=== PATIENT | female | born 1950 | race Two or more races ===

== ENCOUNTER 2018-01-18 21:44 | Emergency (ER) | payer OTHER ==
[~2018-01-18] VITALS: Ht 154.9 cm; Wt 81.6 kg
[~2018-01-18 21:44] MED LIST: CEPH750C6 OR; INDO25CA14 PO
[2018-01-18 22:48] LABS: Basophils # (auto) 0 uL; Basophils % (auto) 0.3 % (0.0-2.0); Eosinophils # (auto) 0 uL; Eosinophils % (auto) 0.3 % (0.0-7.0); Hematocrit 43.6 % (36.0-46.0); Hemoglobin 14.3 g/dL (12.2-16.2); Lymphocytes # (auto) 1.2 uL; Lymphocytes % (auto) 10.7 % (10.0-50.0); Mean Corpuscular Hemoglobin 27.7 pg (28.0-32.0); Mean Corpuscular Hgb Conc. 32.7 g/dL (32.0-36.0); Mean Corpuscular Volume 84.8 fL (80.0-100.0); Monocytes # (auto) 0.3 uL; Monocytes % (auto) 2.3 % (0.0-12.0); Neutrophils # (auto) 9.4 uL; Neutrophils % (auto) 86.4 % (37.0-80.0); Platelet Count (auto) 307 10^3/uL (140-450); Red Blood Cells 5.15 10^6/uL (4.0-5.20); Red Cell Distribution Width 14.7 % (11.8-14.3); White Blood Cell 10.9 10^3/uL (4.4-10.8)
[2018-01-18 23:00] LABS: Albumin 3.2 g/dL (3.4-5.0); BUN/Creatinine Ratio 19.6; Calcium 8.2 mg/dL (8.5-10.1); Potassium 3.7 mmol/L (3.5-5.1)
[2018-01-18 23:02] LABS: Bilirubin, Total 0.5 mg/dL (0.2-1.0); Total Protein 7.5 g/dL (6.4-8.2)
[2018-01-19] MEDS ORDERED: SODIUM CHLORIDE 0.9% 1,000 ML IV ONE (08:42)
[2018-01-19 09:21] LABS: Urine Bacteria FEW /hpf (None Seen); Urine Blood Negative /uL (Negative); Urine Specific Gravity 1.005 (1.001-1.035); Urine WBC 37 /hpf (0 - 5)
[2018-01-19 10:08] VITALS: BP 94/53
[2018-01-19] MEDS ORDERED: cefTRIAXone 1GM/10ml IVPUSH 10 ML IV ONE (11:00)
== END 2018-01-19 12:09 | disposition home or self-care (01) ==
LOC: ER 21:44
DX: N39.0 Urinary tract infection, site not specified (principal); R42 Dizziness and giddiness; M19.90 Unspecified osteoarthritis, unspecified site; Z90.49 Acquired absence of other specified parts of digestive tract
CPT/HCPCS: 36415; 80053; 81001; 85025; 96361; 96374; 99284; J7030

== ENCOUNTER 2024-10-29 00:35 | Emergency (ER) | payer OTHER ==
[~2024-10-29] VITALS: Ht 152.4 cm; Wt 80.0 kg
[~2024-10-29 00:35] MED LIST changes: +INDO-35 PO; -INDO25CA14 PO
--- NOTE | 2024-10-29 01:30 | ED.PDOC ---
Psychiatric HPI Comments 74-year-old female brought in by son. The patient states she has been having auditory hallucinations hearing a male and female voices. States she has been feeling very anxious over the last week. Says over the last seven days she was slipped very little. Patient states she has been having mild anxiety has been getting worse over the last months after new people have moved in on the lot that she stays. Son states that she does stay alone. When he went to go pick her up her house was in the clearly manner. She was still been taking care of herself but she was not left her home in two months. Patient denies any suicidal and homicidal ideations. Patient states that she has had similar episode but it was over 10 years ago. She denied getting help because she would not want her children get it taken away. Chief Complaint: Anxiety Time Seen by MD: 01:09 Primary Care Provider: FILI Reviewed Notes: Nurses Notes Information Source: Patient Past Medical History PAST MEDICAL HISTORY: Arthritis Surgical History: Appendectomy, Cholecystectomy, , Hernia Repair RECEIVABLE EXECUTIVE History: No Pertinent RECEIVABLE EXECUTIVE History Family History Family History: Unknown Social History Smoker: Non-Smoker Alcohol: Denies ETOH Use Drugs: Denies Drug Use Lives In: Home Constitutional: denies: chills, diaphoresis, fatigue, fever, malaise, sweats, weakness, others EENTM: denies: blurred vision, double vision, ear bleeding, ear discharge, ear drainage, ear pain, ear ringing, eye pain, eye redness, hearing loss, mouth pain, mouth swelling, nasal discharge, nose bleeding, nose congestion, nose pain, photophobia, tearing, throat pain, throat swelling, voice changes, others Respiratory: denies: cough, hemoptysis, orthopnea, SOB at rest, shortness of breath, SOB with excertion, stridor, wheezing, others Cardiovascular: denies: chest pain, dizzy spells, diaphoresis, Dyspnea on exertion, edema, irregular heart beat, left arm pain, lightheadedness, palpitations, PND, syncope, others Gastrointestinal: denies: abdomen distended, abdominal pain, blood streaked bowels, constipated, diarrhea, dysphagia, difficulty swallowing, hematemesis, melena, nausea, poor appetite, poor fluid intake, rectal bleeding, rectal pain, vomiting, others Genitourinary: denies: abnormal vagina bleeding, burning, dyspareunia, dysuria, flank pain, frequency, hematuria, incontinence, pain, , vagina discharge, urgency, others Neurological: denies: dizziness, fainting, headache, left sided numbness, left sided weakness, numbness, paresthesia, pre-existing deficit, right sided numbness, right sided weakness, seizure, speech problems, tingling, tremors, weakness, others Musculoskeletal: denies: back pain, gout, joint pain, joint swelling, muscle pain, muscle stiffness, neck pain, others Integumetry: denies: bruises, change in color, change in hair/nails, dryness, laceration, lesions, lumps, rash, wounds, others Psychiatric: reports: anxiety, panic disorder, sleepless Physical Exam General Appearance: No Apparent Distress, Normal HEENT: Normal ENT Inspection, Pharynx Normal, TMs Normal Neck: Full Range of Motion, Non-Tender, Normal, Normal Inspection Respiratory: Chest Non-Tender, Lungs Clear, No Accessory Muscle Use, No Respiratory Distress, Normal Breath Sounds Cardiovascular: No Edema, No JVD, No Murmur, No Gallop, Normal Peripheral Pulses, Regular Rate/Rhythm Breast Exam: Deferred Gastrointestinal: No Organomegaly, Non Tender, No Pulsatile Mass, Normal Bowel Sounds, Soft Genitalia: Deferred Pelvic: Deferred Rectal: Deferred Extremities: No calf tenderness, Normal capillary refill, Normal inspection, Normal range of motion, Non-tender, No pedal edema Musculoskeletal : Apperance: Normal 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 Was a procedure done?: No Psych Differential Dx Psych. Differential Dx: Anxiety OD Differential Dx: Delirium Intoxication Differential Dx: Schizophrenia X-Ray, Labs, Meds, VS Vital Signs Date Time Temp Pulse Resp B/P (MAP) Pulse Ox O2 Delivery O2 Flow Rate FiO2 10/29/24 07:40 84 18 107/52 (70) 96 10/29/24 03:52 98 Room Air* 0 10/29/24 03:37 97.5 90 16 114/62 (79) 96 97.5 10/29/24 01:16 18 95 Room Air* 0 10/29/24 01:16 98.1 113 18 143/73 (96) 95 Lab Test 10/29/24 03:30 10/29/24 03:00 Range/Units Urine Color Colorless Yellow Urine Clarity Clear Clear Urine pH 5.5 5.0-9.0 Urine Specific [place] 1.005 1.001-1.035 Urine Protein Negative Negative Urine Ketones Negative Negative Urine Blood Negative Negative /uL Urine Nitrite Negative Negative Urine Bilirubin Negative Negative Urine Urobilinogen Normal Negative mg/dL Urine Leukocyte Esterase Negative Negative /uL Urine RBC None seen 0 - 4 /hpf Urine WBC 2 0 - 5 /hpf Urine Squamous Epithelial Cells Few <5 /hpf Urine Bacteria Few H None Seen /hpf Urine Glucose Normal Normal mg/dL Urine Opiates Screen Neg NEGATIVE Urine Fentanyl Screen Neg NEGATIVE Urine Barbiturates Screen Neg NEGATIVE Urine Phencyclidine Screen Neg NEGATIVE Urine Amphetamines Screen Neg NEGATIVE Urine Benzodiazepines Screen Neg NEGATIVE Urine Cocaine Screen Neg NEGATIVE Urine Cannabinoids Screen Neg NEGATIVE White Blood Count 10.4 4.4-10.8 10^3/uL Red Blood Count 4.95 4.0-5.20 10^6/uL Hemoglobin 13.9 12.2-16.2 g/dL Hematocrit 41.9 36.0-46.0 % Mean Corpuscular Volume 84.5 80.0-100.0 fL Mean Corpuscular Hemoglobin 28.1 28.0-32.0 pg Mean Corpuscular Hemoglobin Concent 33.3 32.0-36.0 g/dL Red Cell Distribution Width 15.0 H 11.8-14.3 % Platelet Count 432 140-450 10^3/uL Mean Platelet Volume 7.5 6.9-10.8 fL Neutrophils (%) (Auto) 70.3 37.0-80.0 % Lymphocytes (%) (Auto) 22.8 10.0-50.0 % Monocytes (%) (Auto) 5.4 0.0-12.0 % Eosinophils (%) (Auto) 1.2 0.0-7.0 % Basophils (%) (Auto) 0.3 0.0-2.0 % Neutrophils # (Auto) 7.3 1.6-8.6 10 ^3/uL Lymphocytes # (Auto) 2.4 0.4-5.4 10 ^3/uL Monocytes # (Auto) 0.6 0-1.3 10 ^3/uL Eosinophils # (Auto) 0.1 0-0.8 10 ^3/uL Basophils # (Auto) 0 0-0.2 10 ^3/uL Nucleated Red Blood Cells 0.1 % Sodium Level 140 136-145 mmol/L Potassium Level 3.9 3.5-5.1 mmol/L Chloride Level 105 98-107 mmol/L Carbon Dioxide Level 30 20-31 mmol/L Anion Gap 5 5-15 Blood Urea Nitrogen 8 L 9-23 mg/dL Creatinine 0.68 0.550-1.02 mg/dL Glomerular Filtration Rate Calc 91 >90 mL/min BUN/Creatinine Ratio 11.8 10.0-20.0 Serum Glucose 109 H 74-106 mg/dL Calcium Level 9.9 8.7-10.4 mg/dL Total Bilirubin 0.3 0.2-1.0 mg/dL Aspartate Amino Transferase (AST) 16 13-40 U/L Alanine Aminotransferase (ALT) < 9 7-40 U/L Alkaline Phosphatase 103 46-116 U/L Total Protein 6.9 5.7-8.2 g/dL Albumin 3.9 3.2-4.8 g/dL Salicylates Level < 3.0 -30 mg/dL Acetaminophen Level < 2.0 L 10.0-20.0 UG/ML Plasma/Serum Blood Alcohol < 3.0 <10 mg/dL Current Medications Medications (Trade) Dose Ordered Sig/Jamar Route Start Time Stop Time Status Last Admin Lorazepam (Ativan Tablet) 0.5 mg ONCE ONCE PO 10/29/24 01:15 10/29/24 01:16 DC 10/29/24 01:34 X-Ray, Labs, Meds, VS Comment Patient is seen by psychiatrist Does not meet criteria for a 51/50 and will be discharged home to follow up with the psychiatrist as outpatient Time of 1ST Reevaluation: 01:29 Reevaluation 1ST: Unchanged Time of 2ND Reevaluation: 08:39 Reevaluation 2ND: Improved Consultation: PCP, Psychiatry Patient Education/Counseling: Diagnosis, Treatment, Prognosis, Need For Follow Up Family Education/Counseling: Diagnosis, Treatment, Prognosis, Need For Follow Up, No Family Present Assigned to Dr. Guadalupe Change of Shift?: Yes Departure 1 Departure Time of Disposition: 08:45 Impression: Primary Impression: Anxiety disorder Qualified Codes: F41.1 - Generalized anxiety disorder Additional Impression: Auditory hallucinations Disposition: HOME / SELF CARE / HOMELESS Condition: Fair e-Prescriptions Olanzapine (OLANZAPINE) 5 Mg Tab 1 TAB PO QPM for 10 Days, #10 TAB 2 Refills Prov: GIA MUÑOZ MD 10/29/24 Discharged With: Self, Relative (Sibling) Critical Care Note Critical Care Time?: No Stability Stability form required: No Heart Score Heart Score: Heart Score Response (Comments) Value History N/A 0 EKG N/A 0 Age >65 2 Risk Factors No known risk factors 0 Troponin N/A 0 Total 2 PEDRO WILDER Oct 29, 2024 01:30 GIA MUÑOZ MD Oct 29, 2024 08:40
[2024-10-29] MEDS: LORazepam 0.5 MG TAB PO ONE (01:34)
[2024-10-29 03:22] LABS: Basophils # (auto) 0 10 ^3/uL (0-0.2); Basophils % (auto) 0.3 % (0.0-2.0); Eosinophils # (auto) 0.1 10 ^3/uL (0-0.8); Eosinophils % (auto) 1.2 % (0.0-7.0); Hematocrit 41.9 % (36.0-46.0); Hemoglobin 13.9 g/dL (12.2-16.2); Lymphocytes # (auto) 2.4 10 ^3/uL (0.4-5.4); Lymphocytes % (auto) 22.8 % (10.0-50.0); Mean Corpuscular Hemoglobin 28.1 pg (28.0-32.0); Mean Corpuscular Hgb Conc. 33.3 g/dL (32.0-36.0); Mean Corpuscular Volume 84.5 fL (80.0-100.0); Monocytes # (auto) 0.6 10 ^3/uL (0-1.3); Monocytes % (auto) 5.4 % (0.0-12.0); Neutrophils # (auto) 7.3 10 ^3/uL (1.6-8.6); Neutrophils % (auto) 70.3 % (37.0-80.0); Nucleated Red Blood Cells % 0.1 %; Platelet Count (auto) 432 10^3/uL (140-450); Red Blood Cells 4.95 10^6/uL (4.0-5.20); White Blood Cell 10.4 10^3/uL (4.4-10.8)
[2024-10-29 03:41] LABS: Albumin 3.9 g/dL (3.2-4.8); Alkaline Phosphatase 103 U/L (46-116); Anion Gap 5 (5-15); Aspartate Aminotransferase 16 U/L (13-40); BUN/Creatinine Ratio 11.8 (10.0-20.0); Calcium 9.9 mg/dL (8.7-10.4); Carbon Dioxide 30 mmol/L (20-31); Chloride 105 mmol/L (98-107); Potassium 3.9 mmol/L (3.5-5.1); Sodium 140 mmol/L (136-145)
[2024-10-29 03:42] LABS: Bilirubin, Total 0.3 mg/dL (0.2-1.0); Total Protein 6.9 g/dL (5.7-8.2)
[2024-10-29 03:45] LABS: Alanine Aminotransferase < 9 U/L (7-40); Blood Alcohol < 3.0 mg/dL (<10); Blood Urea Nitrogen 8 mg/dL (9-23); Glucose 109 mg/dL (74-106)
[2024-10-29 03:46] LABS: Acetaminophen < 2.0 UG/ML (10.0-20.0); Salicylate < 3.0 mg/dL (-30)
[2024-10-29 03:52] VITALS: O2SAT 98
[2024-10-29 04:28] LABS: Amphetamine Screen, Urine Neg (NEGATIVE); Barbiturate Scree,Urine Neg (NEGATIVE); Benzodiazephine Screen, Urine Neg (NEGATIVE); Cannabinoid Screen, Urine Neg (NEGATIVE); Cocaine Screen, Urine Neg (NEGATIVE); Opiate Scree,Urine Neg (NEGATIVE); Phencyclidine Screen, Urine Neg (NEGATIVE)
[2024-10-29 04:58] LABS: Urine Bacteria FEW /hpf (None Seen); Urine Blood Negative /uL (Negative); Urine Clarity Clear (Clear); Urine Color Colorless (Yellow); Urine Protein, UAD Negative (Negative); Urine Specific Gravity 1.005 (1.001-1.035); Urine Urobilinogen Normal (Negative); Urine WBC 2 /hpf (0 - 5); Urine pH 5.5 (5.0-9.0)
--- NOTE | 2024-10-29 06:18 | DVHINCON2 ---
Date of Service if different f: Oct 29, 2024 Time of Service: 05:29 Consult Consult Note PSYCHIATRY ED NEW CONSULT HPI: 74 yo F pt with no PPH presents to ED BIB son for safety, psychiatric stabilization and possible med initiation in setting of anxiety and psychosis. Psychiatry consulted for safety evaluation and recommendations in context of current presentation. Of note, pt citizen of [place] speaking only hence adoption counselor (son) utilized throughout interview Per pt, reports about a week ago sudden onset of AH of male/female voices that are threatening to hurt/abduct her resulting in increased anxiety, some depressed mood, poor sleep, paranoia, symptoms primarily worse at night. Pt also reports being spied by her neighbor and they are trying to evict her because of her ethnicity. Denies TI/TW/TB. Per son, pt had a similar episode several decades ago but never sought any help due to fear of losing her young children. Denies any ADL/IADL impairments. Denies any forgetfulness or memory concerns. Denies hopelessness, helplessness, negative thoughts, loss of interest, or anhedonia. Appetite/energy/conc relatively WNL. Adamantly denies SI/HI. No overt manic, psychotic, major depressive, cognitive, dissociative phenomena, or somatic symptoms noted. Appears somewhat future oriented/goal directed. Pt currently does not have psychiatrist/therapist out in community. Currently not on any psychotropic agents. No prior psych med trials. Denies ETOH, THC or IDU with 4 children, lives by self in single family home, some support system noted (immediate family). Unknown trauma hx. Unknown FH. No acute medical issues, hx of seizures/TBI, or recent head injuries, NKDA. Pt medically cleared in ED Does not have hx of suicide attempts, SIB/PSG, or prior psych hospitalizations/5150. Denies history of violence, unprovoked aggression, or assaultive behaviors. Denies recent hx of impulsivity, attention seeking behaviors, anger outbursts, emotional dysregulation, mood reactivity or engaging in risky behaviors. Does not have access to firearms. Currently denies SI/HI. Identifies self/family as PPF. No safety concerns noted during encounter. MSE: General Appearance/Behavior: Alert and awake; appears stated age, well developed, fair grooming and hygiene; calm and cooperative, fair eye contact, no PMA/PMR Speech: coherent, rrr Thought Process: linear, logical, appears goal-directed Thought Content: Abnormal Thoughts and Perceptions: None Homicidality / Violent Thoughts: None Suicidality: adamantly denies SI Hallucinations: (+) AH Delusions: + paranoia Obsessions /compulsions : None Judgment and Insight: fair judgment with fair insight Mood & Affect: "anxious" with mood-congruent, worried Orientation: oriented to person, place, time Attention/Concentration: appears intact Memory: grossly intact Language: no unusual or inappropriate language Assessment: 74 yo F pt with no PPH presents to ED BIB son for safety, psychiatric stabilization and possible med initiation in setting of anxiety and psychosis. Psychiatry consulted for safety evaluation and recommendations in context of cur rent presentation. Of note, pt citizen of [place] speaking only hence adoption counselor (son) utilized throughout interview Currently denies SI/HI but continues to endorse threatening AH, anxiety, poor sleep, and paranoia. Unclear etiology of symptoms - pt medically cleared in ED and has no prior psych history. No cognitive symptoms noted. Suspect isolated brief psychotic episode - pt is elderly and lives alone with very minimal social activation. NO ADL/IADL impairment nopted Presently, pt does not show any signs of immediate danger to self or others that would warrant a higher level of care. Thus, pt does not meet criteria for 5150 or involuntary inpatient psych admission as is not DTS, DTO or GD. No acute safety concerns noted. Acute suicide risk appears nonexistent to relatively low Meantime, do feel that patient would benefit from a brief trial of antipsychotic to address AH and anxiety symptoms that have been exacerbated prior to this admission. Primary Diagnosis: Psychotic disorder unspecified Plan: Does not warrant involuntary inpatient psychiatric hospitalization or 5150 hold at this time No acute safety concerns Pt can be safely discharged back to current residence with rx for Olanzapine 5 mg po qhs x 7 days with 1 R Risks/benefits/alternative treatments discussed, informed consent provided by pt Supportive tx provided, discussed safety plan with pt Instructed pt to call [phone] or return to ED if psychotic symptoms worsen or new onset SI/HI upon discharge low threshold for inpt psych admission if pt returns with similar CC/presentation Family (son at bedside) agrees to watch patient over next couple days, safeguard primary residence, ensure med compliance, and to arrange any appropriate f/u appointments Pt verbalized understanding and is receptive to above tx plan This case was discussed with ED nurse/provider and all parties in agreement with above tx plan Clayton Rod MD Plan discussed with: Patient, Dilshad CLAYTON ROD MD Oct 29, 2024 06:18
[2024-10-29] MEDS ORDERED: OLAN1TAB7 PO (08:38)
[2024-10-29 08:51] VITALS: BP 132/84; PULSE 69; RESP 16; TEMP 98.2; O2SAT 98
== END 2024-10-29 08:52 | disposition home or self-care (01) ==
LOC: ER 00:35
DX: F41.1 Generalized anxiety disorder (principal); F32.A Depression, unspecified; F22 Delusional disorders; M19.90 Unspecified osteoarthritis, unspecified site; Z90.49 Acquired absence of other specified parts of digestive tract; Z98.890 Other specified postprocedural states
CPT/HCPCS: 36415; 80053; 80307; 80320; 80329; 81001; 85025

== ENCOUNTER 2025-08-20 19:12 | Inpatient (IN) | payer OTHER ==
[~2025-08-20] VITALS: Ht 152.4 cm; Wt 72.0 kg
[~2025-08-20 19:12] MED LIST changes: +OLAN1TAB7 PO
--- NOTE | 2025-08-20 19:33 | ECG ---
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
--- NOTE | 2025-08-20 19:46 | ED.PDOC ---
SOB-HPI HPI Comments HPI: 75 year old female came to ER due to shortness of breath. Patient has been complaining of shortness of breath and mid back pains for the past 3 weeks. Denies any recent trauma. Motrin taken for the pain offers no relief. Initial Vitals BP: 133/65 HR:102 RR:18 O2:94% Temp: Past Medical History: Arthritis, Osteoporosis Past Surgical History: CS, appendectomy, cholecystectomy, hernia repair Social History: Denies ETOH, smoking, and drug use. BAHENA: SHORTNESS OF BREATH HPI: Poor Historian. REVIEW OF SYSTEMS: CONSTITUTIONAL: Denies acute: fever, diaphoresis, chills, generalized weakness. HEAD: Denies acute: headache, photophobia Eyes: Denies acute: Double vision, vision loss, eye pain, eye discharge. EARS: Denies acute: tinnitus, hearing loss, ear discharge, ear pain, THROAT: Denies acute: sore throat, swelling, difficulty swallowing , pain with swallowing, change in voice. NECK: Denies acute: neck pain, neck swelling, stiff neck. HEART: Denies acute : chest pain, palpitations, LUNGS: Denies acute: , wheezing, cough, hemoptysis ABDOMEN: Denies acute: abdominal pain, Nausea, Vomiting, diarrhea, melena , hematemesis, hematochezia SKIN: Denies acute: rash, redness, lesions, itchiness. EXTREMITIES: Denies acute: calf pain, numbness, tingling, weakness, denies pain in extremity. Neuro: Denies acute: focal neurological deficit, motor or sensory focal neurological deficit, tremors, seizure like activity, confusion, dizziness, change in mental status, loss of bowel or bladder function, cauda equina like symptoms. : Denies acute: dysuria, hematuria, flank pain, increase in urinary frequency. PSYCH: Denies acute: hallucination, suicidal ideation, homicidal ideation. FEMALE: Denies acute: abnormal vaginal bleeding, foul odor, unusual discharge. PHYSICAL EXAM: General: ----moderate----acute distress, awake and alert. Head: normocephalic, atraumatic. Neck: supple, trachea is midline, no swelling. Throat: Normal phonation. Eyes:, no erythema, no purulent discharge, no proptosis, no icterus. Heart: regular tachycardic,, no significant murmur appreciated. Lungs: no apparent respiratory distress, Able to speak in full sentences. No wheezing, no rhonchi, no crackles. No stridors Clear to auscultation bilaterally. Abdomen: non tender to palpation, non distended, soft, no guarding, no rebound, + bowel sounds. Obese Neuro: Awake, Alert, oriented to name, self, situation, follows commands GCS=15. Speech is normal. Skin: no petechia, no purpura, no cyanosis, non-pale, not jaundice. Lower extremities: --trace bilateral- Pitting edema no deformity, no focal swelling, no calf TTP. Makes eye contact. moves all four extremities. Face: no apparent facial droop. Palpation of the mid thoracic back bilaterally is tender to palpation however there is no erythema or lesions or swelling or deformity Ambulating in the ED with a walker. ED COURSE: DISCLAIMER: This medical document was created using an electronic medical record system with voice recognition software and computerized dictation system. Although this document has been carefully reviewed, there might still be some phonetic and typographical errors. Occasional wrong-word or "sound-alike" substitutions may have occurred due to the inherent limitations of voice recognition software. These areas are purely typographical due to imperfections of the software programs and do not reflect any compromise in the patient's medical care. Please read the chart carefully and recognize, using context, where these substitutions have occurred. Chief Complaint: Shortness of Breath Time Seen by MD: 19:44 Primary Care Provider: FILI Reviewed notes: Nurses Notes, Allergies Information Source: Patient Mode of Arrival: Ambulatory Past Medical History PAST MEDICAL HISTORY: Arthritis Surgical History: Appendectomy, Cholecystectomy, , Hernia Repair RESEARCH CLERK History: No Pertinent RESEARCH CLERK History Family History Family History: Reviewed,noncontributory to illness Social History Smoker: Non-Smoker Alcohol: Denies ETOH Use Drugs: Denies Drug Use Lives In: Home EKG EKG : Pulse Rate (adult): 105 Cardiac Rhythm: ST Was a procedure done? Was a procedure done?: No Differential Dx Differential Diagnosis: Bronchitis, Respiratory Distress, URI, Other (DDx include ACS, unstable angina, anxiety, PE, pneumothroax, neoplasm, cardiac ischemia, COPD, asthma, CHF, pleural effusion, tobacco abuse, pneumonia, hypoxia, hypercapnia, anemia., infection/sepsis., pulmonary edema. Asthma, Cardiac tamponade, infection.) X-Ray, Labs, Meds, VS Vital Signs Date Time Temp Pulse Resp B/P (MAP) Pulse Ox O2 Delivery O2 Flow Rate FiO2 08/20/25 21:31 98.1 101 18 125/68 (87) 93 98.1 08/20/25 20:15 125/68 08/20/25 19:46 105 08/20/25 19:31 105 08/20/25 19:16 97.4 102 18 133/65 94 97.4 Lab Test 08/20/25 20:43 08/20/25 19:37 Range/Units Phosphorus Level 3.4 2.4-5.1 mg/dL Magnesium Level 2.0 1.6-2.6 mg/dL Troponin I High Sensitivity < 3 L < 3 L </=34 ng/L Triglycerides Level 100 < 150 mg/dL Cholesterol Level 139 < 200 mg/dL LDL Cholesterol 75 < 100 mg/dL HDL Cholesterol 56 40-59 mg/dL Vitamin B12 Level Pending White Blood Count 11.0 H 4.4-10.8 10^3/uL Red Blood Count 5.19 4.0-5.20 10^6/uL Hemoglobin 14.3 12.2-16.2 g/dL Hematocrit 43.4 36.0-46.0 % Mean Corpuscular Volume 83.6 80.0-100.0 fL Mean Corpuscular Hemoglobin 27.5 L 28.0-32.0 pg Mean Corpuscular Hemoglobin Concent 32.8 32.0-36.0 g/dL Red Cell Distribution Width 14.8 H 11.8-14.3 % Platelet Count 461 H 140-450 10^3/uL Mean Platelet Volume 7.0 6.9-10.8 fL Neutrophils (%) (Auto) 71.2 37.0-80.0 % Lymphocytes (%) (Auto) 20.8 10.0-50.0 % Monocytes (%) (Auto) 6.3 0.0-12.0 % Eosinophils (%) (Auto) 1.5 0.0-7.0 % Basophils (%) (Auto) 0.2 0.0-2.0 % Neutrophils # (Auto) 7.8 1.6-8.6 10 ^3/uL Lymphocytes # (Auto) 2.3 0.4-5.4 10 ^3/uL Monocytes # (Auto) 0.7 0-1.3 10 ^3/uL Eosinophils # (Auto) 0.2 0-0.8 10 ^3/uL Basophils # (Auto) 0 0-0.2 10 ^3/uL Nucleated Red Blood Cells 0.1 % Prothrombin Time 9.8 9.3-11.8 sec Prothrombin Time INR 0.92 0.9-1.15 Activated Partial Thromboplast Time 28.4 24.5-34.5 SEC D-Dimer, Quantitative 0.92 H 0.0-0.49 mg/L FEU Sodium Level 141 136-145 mmol/L Potassium Level 3.6 3.5-5.1 mmol/L Chloride Level 102 98-107 mmol/L Carbon Dioxide Level 28 20-31 mmol/L Anion Gap 11 5-15 Blood Urea Nitrogen 9 9-23 mg/dL Creatinine 0.61 0.550-1.02 mg/dL Glomerular Filtration Rate Calc 93 >90 mL/min BUN/Creatinine Ratio 14.8 10.0-20.0 Serum Glucose 107 H 74-106 mg/dL Hemoglobin A1c 5.3 <5.7 % A1C Calcium Level 9.5 8.7-10.4 mg/dL Total Bilirubin 0.4 0.2-1.0 mg/dL Aspartate Amino Transferase (AST) 15 13-40 U/L Alanine Aminotransferase (ALT) 10 7-40 U/L Alkaline Phosphatase 94 46-116 U/L B-Type Natriuretic Peptide 17.93 0-100 pg/mL Total Protein 7.6 5.7-8.2 g/dL Albumin 4.2 3.2-4.8 g/dL Vitamin D 25-Hydroxy 24.1 L 30.0-100 ng/mL Thyroid Stimulating Hormone (TSH) 1.75 0.55-4.78 uIU/mL Current Medications Medications (Trade) Dose Ordered Sig/Jamar Route Start Time Stop Time Status Last Admin Furosemide (Lasix Injection) 20 mg ONCE ONCE IV 08/20/25 20:15 08/20/25 20:16 DC 08/20/25 20:15 [facility] [id number] [facility] [id number] Ph: [phone] DIAGNOSTIC IMAGING Diagnostic Imaging Report : [id number] Signed PATIENT: ALISHA BAHENA ACCT: [id number] UNIT: [id number] : 1950 LOC: ER ROOM / BED: / AGE / SEX: 75 / F ADM STATUS: REG ER SERVICE 45 ORDERING PHYSICIAN: ADRIEN PATTERSON DO PROCEDURE(s): CTACH - CT ANGIO CHEST CONTRAST REASON: sob, mid thoracic back pain ORDER NUMBER(s): [id number], ACCESSION NUMBER(s): [id number] CTA Chest with intravenous contrast INDICATION: sob, mid thoracic back pain COMPARISON: Same day chest radiograph TECHNIQUE: Multidetector spiral CTA of the chest was performed of the chest with intravenous contrast. PULMONARY ANGIOGRAPHY PROTOCOL was utilized using a bolus-tracking technique centered on the main pulmonary artery. Axial, coronal and sagittal multiplanar and MIP reformats were performed. Radiation Dose : 1. Chest: CTDI volume is 21.96 mGy. Dose-length product is 1265.7 mGy*cm The dose indicators for CT are the volume Computed Tomography (CT) Dose Index (CTDIvol) and the Dose Length Product (DLP), and are measured in units of mGy a nd mGy-cm, respectively. These indicators are not patient dose, but values generated from the CT scanner acquisition factors. The report includes radiation exposure data for exposures received during this examination. Findings: Pulmonary arteries: Technical factors adequate for assessment to the level of the proximal subsegmental arteries. No evidence of filling defect. Central arteries are normal in caliber. Lower neck: Multinodular thyroid, largest at the isthmus measuring 1.6 cm. Lungs: No focal consolidation. Mild basilar scarring/atelectasis. Pleura: Normal. Heart/Vascular Structures: Normal heart size. No pericardial effusion. Mild coronary and aortic atherosclerosis. Lymph Nodes: No adenopathy Musculoskeletal: Multiple chronic appearing thoracic vertebral compression deformities including T4-T5 and T8-T9. Degenerative change and scoliotic curvature of the spine. Soft tissues: Unremarkable. Upper abdomen: Left adrenal 2 cm nodule with 52 Hounsfield unit attenuation. Partially imaged enlarged left renal collecting system appearing most consistent with renal sinus cysts. Cholecystectomy. IMPRESSION: 1. No pulmonary embolism to the level of the proximal subsegmental arteries. 2. No acute thoracic finding. 3. Indeterminate left adrenal 2 cm nodule, outpatient adrenal CT or MRI recommended. 4. Partially imaged enlarged left renal collecting system appears most co nsistent with renal sinus cysts, may be further assessed on the above recommended adrenal exam. ATED BY: MARKUS DAHL MD DICTATED DATE/TIME: 08/20/252146 SIGNED BY: MARKUS DAHL MD SIGNED DATE/TIME: 08/20/252146 CC: [place] [id number] Ph: [phone] DIAGNOSTIC IMAGING Diagnostic Imaging Report : [id number] Signed PATIENT: ALISHA BAHENA ACCT: [id number] UNIT: [id number] : 1950 LOC: ER ROOM / BED: / AGE / SEX: 75 / F ADM STATUS: REG ER SERVICE 23 ORDERING PHYSICIAN: ADRIEN PATTERSON DO PROCEDURE(s): CXRP - CHEST PORTABLE REASON: sob ORDER NUMBER(s): [id number], ACCESSION NUMBER(s): [id number] CLINICAL HISTORY: sob TECHNIQUE: Single view of the chest was obtained. COMPARISON: None FINDINGS: The heart size and pulmonary vasculature are normal. The lungs are clear. IMPRESSION: NO ACUTE CARDIOPULMONARY PROCESS. ATED BY: MIKAYLA LEONARD MD DICTATED DATE/TIME: 08/20/252009 SIGNED BY: MIKAYLA LEONARD MD SIGNED DATE/TIME: 08/20/252009 CC: Time of 1ST Reevaluation: 19:43 Reevaluation 1ST: Unchanged Patient Education/Counseling: Diagnosis, Treatment Family Education/Counseling: No Family Present Comments MDM: patient presented with the above HPI.-dyspnea----workup was initiated. patient was found with the above mentioned diagnosis. the following medications were ordered: please refer to order lists of meds and tests obtained by myself Dr. Patterson. Patient ED course and VS have been stabilized. Patient has been reassessed in the ED and remained in a stable condition. Pertinent incidental findings were discussed with the patient and/or family. Patient/family voices understanding and is agreeable with plan. Patient has been observed in the ED adequate length of time to insure improvement/stability. Escalation of care considered: Consideration of escalation to observation or admission Patient was ADMITTED to the medicine team for further evaluation and treatment of their presentation. All the reports of any imaging studies that were ordered by myself were reviewed by myself. SEPSIS Sepsis Screen Date sepsis recognized/suspect: Aug 20, 2025 Time Sepsis recognized/suspect: 1920 Recent Procedure: No On Antibiotic Therapy: No Respiratory Rate >20: No Heart Rate >90: No Temp<36 C (96.8 F) or >38.3 C: No SBP <90 or MAP <65 mmHG: No New Acute Mental Status Change: No Is the patient on CPAP, BIPAP,: No Physician Orders Quality Analyst/Technical Writer (08/20/25 ) Chest Portable (08/20/25 19:24) Ct Angio Chest Contrast (08/20/25 19:46) Vital Signs Date Time Temp Pulse Resp B/P (MAP) Pulse Ox O2 Delivery O2 Flow Rate FiO2 08/20/25 21:31 98.1 101 18 125/68 (87) 93 98.1 08/20/25 20:15 125/68 08/20/25 19:46 105 08/20/25 19:31 105 08/20/25 19:16 97.4 102 18 133/65 94 97.4 Laboratory Tests Test 08/20/25 19:37 White Blood Count 11.0 10^3/uL (4.4-10.8) H Medications Medications Dose Ordered Sig/Jamar Route Start Time Stop Time Status Last Admin Dose Admin Furosemide 20 mg ONCE ONCE IV 08/20/25 20:15 08/20/25 20:16 DC 08/20/25 20:15 Departure 1 Departure Time of Disposition: 21:47 Impression: Primary Impression: Dyspnea Additional Impressions: Back pain Multinodular thyroid Disposition: ADMITTED INPATIENT Admit to: Tele Condition: Guarded Discharged With: Self Critical Care Note Critical Care Time?: No Heart Score Heart Score: Heart Score Response (Comments) Value History N/A 0 EKG N/A 0 Age N/A 0 Risk Factors N/A 0 Troponin N/A 0 Total 0 I personally scribed for ADRIEN PATTERSON DO ([facility]) on 08/20/25 at 19:46. Electronically submitted by Josias Schwab ([facility]). I personally scribed for ADRIEN PATTERSON DO ([facility]) on 08/20/25 at 21:59. Electronically submitted by Josias Schwab ([facility]). I personally scribed for ADRIEN PATTERSON DO ([facility]) on 08/20/25 at 22:04. Electronically submitted by Josias Schwab ([facility]). I personally scribed for ADRIEN PATTERSON DO ([facility]) on 08/20/25 at 22:15. Electronically submitted by Josias Schwab ([facility]). ADRIEN PATTERSON DO Aug 20, 2025 19:46
[2025-08-20 19:56] LABS: Hematocrit 43.4 % (36.0-46.0); Hemoglobin 14.3 g/dL (12.2-16.2); Mean Corpuscular Hemoglobin 27.5 pg (28.0-32.0); Mean Corpuscular Volume 83.6 fL (80.0-100.0); Nucleated Red Blood Cells % 0.1 %
[2025-08-20 20:12] LABS: Alanine Aminotransferase 10 U/L (7-40); Albumin 4.2 g/dL (3.2-4.8); Alkaline Phosphatase 94 U/L (46-116); Anion Gap 11 (5-15); BUN/Creatinine Ratio 14.8 (10.0-20.0); Bilirubin, Total 0.4 mg/dL (0.2-1.0); Blood Urea Nitrogen 9 mg/dL (9-23); Calcium 9.5 mg/dL (8.7-10.4); Carbon Dioxide 28 mmol/L (20-31); Chloride 102 mmol/L (98-107); Potassium 3.6 mmol/L (3.5-5.1); Sodium 141 mmol/L (136-145); Total Protein 7.6 g/dL (5.7-8.2)
--- NOTE | 2025-08-20 20:13 | DVH ---
CLINICAL HISTORY: sob TECHNIQUE: Single view of the chest was obtained. COMPARISON: None FINDINGS: The heart size and pulmonary vasculature are normal. The lungs are clear. IMPRESSION: NO ACUTE CARDIOPULMONARY PROCESS.
[2025-08-20 20:14] LABS: Glucose 107 mg/dL (74-106)
[2025-08-20] MEDS: FUROSEMIDE 20 MG/2 ML VIAL IV ONE (20:15)
[2025-08-20] MEDS: IOHEXOL 350 MG/ML 100ML IJ ONE (21:00)
--- NOTE | 2025-08-20 21:49 | DVH ---
CTA Chest with intravenous contrast INDICATION: sob, mid thoracic back pain COMPARISON: Same day chest radiograph TECHNIQUE: Multidetector spiral CTA of the chest was performed of the chest with intravenous contrast . PULMONARY ANGIOGRAPHY PROTOCOL was utilized using a bolus-tracking technique centered on the main p ulmonary artery. Axial, coronal and sagittal multiplanar and MIP reformats were performed. Radiation Dose : 1. Chest: CTDI volume is 21.96 mGy. Dose-length product is 1265.7 mGy*cm The dose indicators for CT are the volume Computed Tomography (CT) Dose Index (CTDIvol) and the Dose Length Product (DLP), and are measured in units of mGy and mGy-cm, respectively. These indicators are not patient dose, but values generated from the CT scanner acquisition factors. The report includes radiation exposure data for exposures received during this examination. Findings: Pulmonary arteries: Technical factors adequate for assessment to the level of the proximal subsegment al arteries. No evidence of filling defect. Central arteries are normal in caliber. Lower neck: Multinodular thyroid, largest at the isthmus measuring 1.6 cm. Lungs: No focal consolidation. Mild basilar scarring/atelectasis. Pleura: Normal. Heart/Vascular Structures: Normal heart size. No pericardial effusion. Mild coronary and aortic ather osclerosis. Lymph Nodes: No adenopathy Musculoskeletal: Multiple chronic appearing thoracic vertebral compression deformities including T4-T 5 and T8-T9. Degenerative change and scoliotic curvature of the spine. Soft tissues: Unremarkable. Upper abdomen: Left adrenal 2 cm nodule with 52 Hounsfield unit attenuation. Partially imaged enlarge d left renal collecting system appearing most consistent with renal sinus cysts. Cholecystectomy. IMPRESSION: 1. No pulmonary embolism to the level of the proximal subsegmental arteries. 2. No acute thoracic finding. 3. Indeterminate left adrenal 2 cm nodule, outpatient adrenal CT or MRI recommended. 4. Partially imaged enlarged left renal collecting system appears most consistent with renal sinus cy sts, may be further assessed on the above recommended adrenal exam.
--- NOTE | 2025-08-20 22:36 | DVHHPRES ---
History of Present Illness Resident Creating Document: LUZ DAWSON RESIDENT History of Present Illness Loreto Glaser is a 75-year-old female patient who presents to ED with chief complaint of stabbing back pain, dyspnea and left sided chest pressure which last approximately 10 minutes, worsens with superficial palpation and when lying flat and improves when leaning forward, has been occurring for the past three weeks, associated with dry cough, sweats, chills, swelling of bilateral limbs, and headaches. Denies any other associated symptoms Past medical history: Asthma, multiple UTIs (last one one year ago), bilateral cataracts (pending surgery) Surgical history: Cholecystectomy, appendectomy, umbilical hernia repair, C- section Family history: Mother has diabetes Social history: Lives in [place] alone (next of kin is daughter). Denies current tobacco, alcohol and other drug abuse Allergies: Denies Home medication: Motrin PRN Patient seen and examined at bedside. Currently has no new complaints. Patient admitted for further evaluation. Past Medical History Per HPI Past Surgical History Per HPI Family History Per HPI Past Social History Per HPI Review of Systems Review of Systems Per HPI Allergies: Coded Allergies: NO KNOWN ALLERGIES (Unverified , 01/03/13) Exam Vital Signs Vital Signs Date Time Temp Pulse Resp B/P (MAP) Pulse Ox O2 Delivery O2 Flow Rate FiO2 08/20/25 21:31 98.1 101 18 125/68 (87) 93 98.1 Exam Patient lying in bed, in no acute distress General: Lucid, afebrile, mucosae are moist Cardiovascular: Normal S1 and S2. No murmurs, gallops or rubs. Tenderness on palpation of left-sided chest Respiratory: Normal ventilation mechanics. Clear lung sounds on auscultation Abdomen: Soft, nontender, no organomegaly, normal bowel sounds : Bilateral positive costovertebral tenderness. MSK/skin: Mobilizes 4 limbs. Skin is dry and warm. Bilateral infrapatellar pitting edema, right greater than left. Neurological: Oriented in 3 spheres. No motor no sensitive deficits. Pupils are isocoric and reactive Labs/Xrays Labs Test 08/20/25 20:43 08/20/25 19:37 Range/Units Troponin I High Sensitivity < 3 L </=34 ng/L White Blood Count 11.0 H 4.4-10.8 10^3/uL Red Blood Count 5.19 4.0-5.20 10^6/uL Hemoglobin 14.3 12.2-16.2 g/dL Hematocrit 43.4 36.0-46.0 % Mean Corpuscular Volume 83.6 80.0-100.0 fL Mean Corpuscular Hemoglobin 27.5 L 28.0-32.0 pg Mean Corpuscular Hemoglobin Concent 32.8 32.0-36.0 g/dL Red Cell Distribution Width 14.8 H 11.8-14.3 % Platelet Count 461 H 140-450 10^3/uL Mean Platelet Volume 7.0 6.9-10.8 fL Neutrophils (%) (Auto) 71.2 37.0-80.0 % Lymphocytes (%) (Auto) 20.8 10.0-50.0 % Monocytes (%) (Auto) 6.3 0.0-12.0 % Eosinophils (%) (Auto) 1.5 0.0-7.0 % Basophils (%) (Auto) 0.2 0.0-2.0 % Neutrophils # (Auto) 7.8 1.6-8.6 10 ^3/uL Lymphocytes # (Auto) 2.3 0.4-5.4 10 ^3/uL Monocytes # (Auto) 0.7 0-1.3 10 ^3/uL Eosinophils # (Auto) 0.2 0-0.8 10 ^3/uL Basophils # (Auto) 0 0-0.2 10 ^3/uL Nucleated Red Blood Cells 0.1 % D-Dimer, Quantitative 0.92 H 0.0-0.49 mg/L FEU Sodium Level 141 136-145 mmol/L Potassium Level 3.6 3.5-5.1 mmol/L Chloride Level 102 98-107 mmol/L Carbon Dioxide Level 28 20-31 mmol/L Anion Gap 11 5-15 Blood Urea Nitrogen 9 9-23 mg/dL Creatinine 0.61 0.550-1.02 mg/dL Glomerular Filtration Rate Calc 93 >90 mL/min BUN/Creatinine Ratio 14.8 10.0-20.0 Serum Glucose 107 H 74-106 mg/dL Calcium Level 9.5 8.7-10.4 mg/dL Total Bilirubin 0.4 0.2-1.0 mg/dL Aspartate Amino Transferase (AST) 15 13-40 U/L Alanine Aminotransferase (ALT) 10 7-40 U/L Alkaline Phosphatase 94 46-116 U/L B-Type Natriuretic Peptide 17.93 0-100 pg/mL Total Protein 7.6 5.7-8.2 g/dL Albumin 4.2 3.2-4.8 g/dL SEPSIS Sepsis Screen Date sepsis recognized/suspect: Aug 20, 2025 Time Sepsis recognized/suspect: 1920 Recent Procedure: No On Antibiotic Therapy: No Respiratory Rate >20: No Heart Rate >90: No Temp<36 C (96.8 F) or >38.3 C: No SBP <90 or MAP <65 mmHG: No New Acute Mental Status Change: No Is the patient on CPAP, BIPAP,: No Physician Orders Child Welfare Director (08/20/25 ) Chest Portable (08/20/25 19:24) Ct Angio Chest Contrast (08/20/25 19:46) Vital Signs Date Time Temp Pulse Resp B/P (MAP) Pulse Ox O2 Delivery O2 Flow Rate FiO2 08/20/25 21:31 98.1 101 18 125/68 (87) 93 98.1 08/20/25 20:15 125/68 08/20/25 19:46 105 08/20/25 19:31 105 08/20/25 19:16 97.4 102 18 133/65 94 97.4 Laboratory Tests Test 08/20/25 19:37 White Blood Count 11.0 10^3/uL (4.4-10.8) H Medications Medications Dose Ordered Sig/Jamar Route Start Time Stop Time Status Last Admin Dose Admin Furosemide 20 mg ONCE ONCE IV 08/20/25 20:15 08/20/25 20:16 DC 08/20/25 20:15 20 MG Assessment/Plan Assessment/Plan Probable complicated UTI Renal sinus cyst Indeterminate left adrenal 2 cm nodule History of multiple UTIs Currently under empiric IV antibiotic (ceftriaxone) Ordered UA, pending Pancultures (blood, urine and sputum), pending Ordered kidney ultrasound Ordered aldosterone/renin, metanephrines and cortisol Ruled out pulmonary embolism Ruled out aortic dissection Ruled out acute coronary syndrome Noncardiac pain - probable costochondritis Ruled out DVT Completed Angio CT which ruled out pulmonary embolism and acute thoracic findings. Did report left adrenal 2 cm nodule and probable renal sinus cyst. Ordered bilateral lower limb ultrasound Troponin x2 negative, EKG with sinus tachycardia and no ST-elevation. Noncardiac pain (musculoskeletal) Asthma, no exacerbation Albuterol PRN Goals of care discussed with patient for over 18 minutes: Full code status Discussed plan with Dr. Mejia, patient and nurses: Patient admitted to [facility]. Patient probably has UTI, pending UA, patient did presents severe costovertebral angle tenderness, and does present abnormal renal sinus. Ordered kidney ultrasound and pancultures. Patient currently under empiric IV antibiotic. Plan discussed with: Patient, Other (Nurses and grandosn) Date of Service: Aug 20, 2025 Billing Provider: JACINDA MEJIA MD Common Visit Codes: 38213-[id number] INP/OBS CARE (HIGH) Secondary Visit Codes: 91001-[id number] CARE PLAN 30 MINUTES LUZ DAWSON RESIDENT Aug 20, 2025 22:36
[2025-08-20] MEDS ORDERED: MORPHINE SULFATE INJ 2 MG/ml SYRG IV PRN (22:45)
[2025-08-20] MEDS ORDERED: ONDANSETRON HCL 4 MG/2 ML VIAL IV PRN (22:45)
[2025-08-20 23:12] LABS: INR 0.92 (0.9-1.15); Partial Thromboplastin Time 28.4 SEC (24.5-34.5); Prothrombin Time 9.8 sec (9.3-11.8)
[2025-08-20 23:20] LABS: Triglycerides 100.0 mg/dL (< 150)
[2025-08-20 23:21] LABS: Magnesium 2.0 mg/dL (1.6-2.6)
[2025-08-20 23:22] LABS: Cholesterol 139.0 mg/dL (< 200); HDL Cholesterol 56.0 mg/dL (40-59)
[2025-08-21] VITALS (11 sets, daily range): BP systolic 112–143; BP diastolic 62–78; PULSE 80–100; RESP 16–24; TEMP 97.5–98; O2SAT 94–97
[2025-08-21 06:24] LABS: Hematocrit 41.0 % (36.0-46.0); Hemoglobin 13.7 g/dL (12.2-16.2); Mean Corpuscular Hemoglobin 27.9 pg (28.0-32.0); Mean Corpuscular Volume 83.4 fL (80.0-100.0); Nucleated Red Blood Cells % 0.0 %
[2025-08-21 06:47] LABS: Alanine Aminotransferase 10 U/L (7-40); Albumin 4.0 g/dL (3.2-4.8); Alkaline Phosphatase 92 U/L (46-116); Anion Gap 12 (5-15); BUN/Creatinine Ratio 16.4 (10.0-20.0); Blood Urea Nitrogen 9 mg/dL (9-23); Calcium 9.4 mg/dL (8.7-10.4); Carbon Dioxide 26 mmol/L (20-31); Chloride 103 mmol/L (98-107); Glucose 101 mg/dL (74-106); Potassium 3.6 mmol/L (3.5-5.1); Sodium 141 mmol/L (136-145); Total Protein 7.2 g/dL (5.7-8.2)
[2025-08-21 06:48] LABS: Bilirubin, Total 0.3 mg/dL (0.2-1.0)
[2025-08-21 09:09] LABS: Urine Protein, UAD TRACE (Negative)
[2025-08-21 09:49] LABS: Amphetamine Screen, Urine Neg (NEGATIVE); Barbiturate Scree,Urine Neg (NEGATIVE); Benzodiazephine Screen, Urine Neg (NEGATIVE); Cannabinoid Screen, Urine Neg (NEGATIVE); Cocaine Screen, Urine Neg (NEGATIVE); Opiate Scree,Urine Neg (NEGATIVE); Phencyclidine Screen, Urine Neg (NEGATIVE)
--- NOTE | 2025-08-21 10:07 | DVH ---
CLINICAL HISTORY: Renal sinus cyst TECHNIQUE: Complete ultrasound exam of the kidneys and bladder was performed. COMPARISON: None FINDINGS: Evaluation is limited due to suboptimal image quality due to patient condition. The right kidney has normal echogenicity and measures 9.3 cm. There is no focal parenchymal abnormali ty or evidence for stone. There is no hydronephrosis. The left kidney has normal echogenicity and measures 11.7 cm. There is no focal parenchymal abnormal ity or evidence for stone. There is mild pelvicaliectasis. The bladder is not well distended and therefore not well evaluated. IMPRESSION: Mild left renal pelvicaliectasis.
--- NOTE | 2025-08-21 10:28 | DVH ---
CLINICAL HISTORY: bilateral LL swelling TECHNIQUE: Color and duplex doppler imagine of the bilateral lower extremity veins was performed. Ves zandra compression and augmentation if possible was also performed. COMPARISON: None FINDINGS: Right Lower Extremity: Right common femoral vein: Normal compressibility and flow. Right superficial femoral vein: Normal compressibility and flow. Right popliteal vein: Normal compressibility and flow. Proximal calf veins demonstrate flow. Left Lower Extremity: Left common femoral vein: Normal compressibility and flow. Left superficial femoral vein: Normal compressibility and flow. Left popliteal vein: Normal compressibility and flow. Proximal calf veins demonstrate flow. There is a 6.9 cm left Ron's cyst. IMPRESSION: No sonographic evidence for DVT. 6.9 cm left Ron's cyst.
--- NOTE | 2025-08-21 10:32 | DVH ---
ULTRASOUND SOFT TISSUE HEAD AND NECK CLINICAL INDICATION: Thyroid nodule on CT TECHNIQUE: Multiple real time sonographic images of the thyroid were obtained. COMPARISON: Prior exam dated None FINDINGS: The right thyroid gland measures 3.3 x 2.1 x 1.7 cm. The left thyroid gland measures approximately 3.6 x 2.0 x 1 4 cm. The isthmus measures 1. cm. Thyroid gland is diffusely heterogeneous. Evaluation is limited as patient was uncooperative. Multip le cysts are visualized in the bilateral thyroid gland with the limitations of the exam. IMPRESSION: Thyroid gland is diffusely heterogeneous. Evaluation is limited as patient was uncooperative. Multip le cysts (TI-RADS 2) are visualized in the bilateral thyroid gland with the limitations of the exam. [employer] TI-RADS Categories and Recommendations (2017): TR1: 0 points, Benign, No FNA TR2: 2 points, Not suspicious, No FNA TR3: 3 points, Mildly suspicious, FNA if > or = 2.5 cm, Follow if > or = 1.5 cm TR4: 4-6 points, Moderately Suspicious, FNA if > or = 1.5 cm, Follow if > or = 1.0 cm TR5: 7+ points, Highly Suspicious, FNA if > or = 1.0 cm, Follow if > or = 0.5 cm Follow-up ultrasound guidelines: TR5: yearly for 5 years, if no growth or change in TI-RADS level TR4: at 1, 2, 3 and 5 years, if no growth or change in TI-RADS level TR3: at 1, 3 and 5 years, if no growth or change in TI-RADS level If increased but below threshold for FNA, repeat in one year. Source: ACR Thyroid Imaging, Reporting and Data System (TI-RADS): White Paper of the ACR TI-RADS Committee. Anibal et al., J Am Agnieszka Radiol 2017;14:587-595.
[2025-08-21] MEDS: ENOXAPARIN SOD 40 MG/0.4 ML SYRINGE SC SCH (11:37)
[2025-08-21] MEDS: ACETAMINOPHEN 325 MG TAB PO PRN (12:58)
--- NOTE | 2025-08-21 17:02 | DVHPN2 ---
Subjective Patient was seen and evaluated by me. Changes from previous H/P or p: No Changes Objective Vitals Vital Signs Date Time Temp Pulse Resp B/P (MAP) Pulse Ox O2 Delivery O2 Flow Rate FiO2 08/21/25 13:58 97.6 08/21/25 13:57 96 18 129/78 (95) 97 08/21/25 09:28 0.0 21 Medications Current Medications Medications Dose Ordered Sig/Jamar Route Start Time Stop Time Status Last Admin Dose Admin Acetaminophen 325 mg Q4HP PRN PO 08/20/25 22:45 08/21/25 12:58 325 MG Ondansetron HCl 4 mg Q4HP PRN IV 08/20/25 22:45 Morphine Sulfate 2 mg Q4HPRN PRN IV 08/20/25 22:45 Enoxaparin Sodium 40 mg DAILY SC 08/21/25 10:00 08/21/25 11:37 40 MG Ceftriaxone Sodium 50 ml @ 100 mls/hr DAILY@09 IV 08/22/25 09:00 Albuterol 2.5 mg Q6HPRN PRN NEB 08/21/25 09:30 Laboratory Results Laboratory Tests 08/21/25 05:55 Chemistry Test 08/20/25 19:37 08/20/25 20:43 08/21/25 05:55 Albumin 4.2 g/dL (3.2-4.8) 4.0 g/dL (3.2-4.8) Calcium Level 9.5 mg/dL (8.7-10.4) 9.4 mg/dL (8.7-10.4) Total Protein 7.6 g/dL (5.7-8.2) 7.2 g/dL (5.7-8.2) Magnesium Level 2.0 mg/dL (1.6-2.6) Phosphorus Level 3.4 mg/dL (2.4-5.1) Coagulation Test 08/20/25 19:37 Prothrombin Time 9.8 sec (9.3-11.8) Prothrombin Time INR 0.92 (0.9-1.15) Activated Partial Thromboplast Time 28.4 SEC (24.5-34.5) D-Dimer, Quantitative 0.92 mg/L FEU (0.0-0.49) H Lipid panel Test 10/9/25 20:43 Cholesterol Level 139 mg/dL (< 200) HDL Cholesterol 56 mg/dL (40-59) Triglycerides Level 100 mg/dL (< 150) Cardiac Markers Test 08/20/25 19:37 B-Type Natriuretic Peptide 17.93 pg/mL (0-100) LFT Test 08/20/25 19:37 08/21/25 05:55 Alanine Aminotransferase (ALT) 10 U/L (7-40) 10 U/L (7-40) Alkaline Phosphatase 94 U/L (46-116) 92 U/L (46-116) Aspartate Amino Transferase (AST) 15 U/L (13-40) 17 U/L (13-40) Total Bilirubin 0.4 mg/dL (0.2-1.0) 0.3 mg/dL (0.2-1.0) HgA1c, TSH Test 08/20/25 19:37 Hemoglobin A1c 5.3 % A1C (<5.7) Thyroid Stimulating Hormone (TSH) 1.75 uIU/mL (0.55-4.78) Urinalysis Test 08/21/25 08:25 Urine Color Yellow (Yellow) Urine Clarity Clear (Clear) Urine pH 5.5 (5.0-9.0) Urine Specific [place] 1.050 (1.001-1.035) Urine Protein Trace (Negative) H Urine Ketones Negative (Negative) Urine Blood Negative /uL (Negative) Urine Nitrite 2+ (Negative) H Urine Bilirubin Negative (Negative) Urine Urobilinogen Normal mg/dL (Negative) Urine Leukocyte Esterase 1+ /uL (Negative) Urine RBC 2 /hpf (0 - 4) Urine Microscopic WBC 5 /HPF (0-5) Urine Squamous Epithelial Cells Few /hpf (<5) Urine Bacteria None seen /hpf (None Seen) Urine Mucus Few (None Seen) Urine Glucose Normal mg/dL (Normal) Assessment/Plan Assessment/Plan 75-year-old female with a known history of hypertension presented to the hospital with the upper back pain chest pressure and burning urination found to have 1. Chest pain rule out acute MA 2. Elevated D-dimer ruled out acute PE 3. Urinary tract infection 4. - -IV antibiotics follow up urine culture Plan discussed with: Patient My Orders Orders - BRAD CROUCH MD Procedure Category Date Status Time Metanephrines Frac Qn LAB 10/10/25 Logged 24hr Ur 10:58 Date of Service: Aug 21, 2025 Billing Provider: BRAD CROUCH MD Common Visit Codes: [id number] INP/OBS CARE(HIGH) BRAD CROUCH MD Aug 21, 2025 17:02
[2025-08-22] VITALS (10 sets, daily range): BP systolic 111–121; BP diastolic 65–75; PULSE 74–95; RESP 16–18; TEMP 97.7–98.4; O2SAT 94–99
--- NOTE | 2025-08-22 00:30 | DVHSR ---
APPROVED REPORT EXAM: Two-dimensional and M-mode echocardiogram with Doppler and color Doppler. Blood Pressure: 113/65 mmHg INDICATION SOB RISK FACTORS Height: 60, Weight: 171 DIMENSIONS LVDd3.6 (3.8-5.7cm)LA (2D)3.1 (1.9-4.0cm)Aortic Root3.7 (2.0-3.7cm) LVDs2.2 (2.5-4.0cm)LA (MM) (1.9-4.0cm)Aortic Cusp Exc1.7 (1.5-2.0cm) EF (%) 70.0 (55-70%)Rt. Atrium3.1 (1.9-4.0cm)Asc. Aorta cm Mitral Valve MitralMitral Stenosis E wave0.86m/sMV Mean GR.2mmHg A wave1.53m/sMV Peak GR.6mmHg E/A ratio0.62D MVAcm2 DECEL [id number] 1/2 [id number] IVRTmsDop MVA3.44cm2 Aortic Valve Aortic ValveAortic Stenosis V11.10m/Saad Mean GR.4mmHg V21.44m/Saad Peak GR.8mmHg LVOT Diameter1.8 (1.8-2.4cm)Doppler AVA1.94cm2 AI P 1/2 Qiah989.62ms Tricuspid Valve TR Velocity2.47m/s [id number] Conclusion MILD LVH AND MILD LV DIASTOLIC DYSFUNCTION LV EF IS 65% POSTERIOR MITRAL LEAFLET IS CALCIFIED AORTIC LEAFLETS ARE CALCIFIED MODERATE DEGREE AORTIC SCLEROSIS NORMAL RV FUNCTION NO EFFUSION
[2025-08-22] MEDS: ALBUTEROL SULF 2.5 MG/0.5ML(0.5%) NEB SOLN NEB PRN (09:04)
--- NOTE | 2025-08-22 17:51 | DVHPN2 ---
Subjective Patient was seen and evaluated by me in the presence of bedside RN and patient's daughter who interpreted the [place] for me. Patient initially presented to hospital with the chest pain and shortness of breaths. 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 Medications Current Medications Medications Dose Ordered Sig/Jamar Route Start Time Stop Time Status Last Admin Dose Admin Acetaminophen 325 mg Q4HP PRN PO 08/20/25 22:45 08/21/25 12:58 325 MG Ondansetron HCl 4 mg Q4HP PRN IV 08/20/25 22:45 Morphine Sulfate 2 mg Q4HPRN PRN IV 08/20/25 22:45 Enoxaparin Sodium 40 mg DAILY SC 08/21/25 10:00 08/22/25 08:59 40 MG Ceftriaxone Sodium 50 ml @ 100 mls/hr DAILY@09 IV 08/22/25 09:00 08/22/25 08:56 100 MLS/HR Albuterol 2.5 mg Q6HPRN PRN NEB 08/21/25 09:30 08/22/25 09:04 2.5 MG Laboratory Results Laboratory Tests 08/21/25 05:55 Urinalysis Test 08/21/25 08:25 Urine Color Yellow (Yellow) Urine Clarity Clear (Clear) Urine pH 5.5 (5.0-9.0) Urine Specific [place] 1.050 (1.001-1.035) Urine Protein Trace (Negative) H Urine Ketones Negative (Negative) Urine Blood Negative /uL (Negative) Urine Nitrite 2+ (Negative) H Urine Bilirubin Negative (Negative) Urine Urobilinogen Normal mg/dL (Negative) Urine Leukocyte Esterase 1+ /uL (Negative) Urine RBC 2 /hpf (0 - 4) Urine Microscopic WBC 5 /HPF (0-5) Urine Squamous Epithelial Cells Few /hpf (<5) Urine Bacteria None seen /hpf (None Seen) Urine Mucus Few (None Seen) Urine Glucose Normal mg/dL (Normal) Microbiology Microbiology Date/Time Source Procedure Growth Status 08/21/25 08:25 Voided Urine Urine Culture - Preliminary Resulted 08/20/25 23:00 Blood Blood Culture - Preliminary NO GROWTH AFTER 24 HOURS OF INCUBATION. Resulted Assessment/Plan Assessment/Plan 75-year-old female with a known history of hypertension presented to the hospital with the upper back pain chest pressure and burning urination found to have 1. Chest pain rule out acute VA 2. Elevated D-dimer ruled out acute PE 3. Urinary tract infection 4. History of recurrent UTI 5. Chronic asthma -IV antibiotics follow up urine culture, plan of care discussed with the patient's patient's bedside RN has been lysed patient's Plan discussed with: Patient, Daughter My Orders Orders - BRAD CROUCH MD Procedure Category Date Status Time * Cardiology Consult CONS 08/22/25 Transmitted 16:45 Date of Service: Aug 22, 2025 Billing Provider: BRAD CROUCH MD Common Visit Codes: [id number] INP/OBS CARE(HIGH) BRAD CROUCH MD Aug 22, 2025 17:51
[2025-08-23] VITALS (9 sets, daily range): BP systolic 117–135; BP diastolic 54–77; PULSE 72–109; RESP 16–20; TEMP 97.2–97.8; O2SAT 95–98
[2025-08-23] MEDS ORDERED: CEFD300C2 PO (16:57)
--- NOTE | 2025-08-23 17:00 | DVHDS2 ---
Discharge Summary Date of Admission Aug 20, 2025 at 22:36 Date of Discharge: Aug 23, 2025 Labs/Diagnostic Data: Laboratory Results Test 08/23/25 06:00 08/22/25 08:51 08/21/25 10:49 08/21/25 08:25 Urine Color Yellow (Yellow) Urine Clarity Clear (Clear) Urine pH 5.5 (5.0-9.0) Urine Specific [place] 1.050 (1.001-1.035) Urine Protein Trace (Negative) Urine Ketones Negative (Negative) Urine Blood Negative /uL (Negative) Urine Nitrite 2+ (Negative) Urine Bilirubin Negative (Negative) Urine Urobilinogen Normal mg/dL (Negative) Urine Leukocyte Esterase 1+ /uL (Negative) Urine RBC 2 /hpf (0 - 4) Urine Microscopic WBC 5 /HPF (0-5) Urine Squamous Epithelial Cells Few /hpf (<5) Urine Bacteria None seen /hpf (None Seen) Urine Mucus Few (None Seen) Urine Glucose Normal mg/dL (Normal) Urine Opiates Screen Neg (NEGATIVE) Urine Fentanyl Screen Neg (NEGATIVE) Urine Barbiturates Screen Neg (NEGATIVE) Urine Phencyclidine Screen Neg (NEGATIVE) Urine Amphetamines Screen Neg (NEGATIVE) Urine Benzodiazepines Screen Neg (NEGATIVE) Urine Cocaine Screen Neg (NEGATIVE) Urine Cannabinoids Screen Neg (NEGATIVE) Test 08/21/25 05:55 08/20/25 22:56 08/20/25 20:43 08/20/25 19:37 White Blood Count 8.3 10^3/uL (4.4-10.8) Red Blood Count 4.91 10^6/uL (4.0-5.20) Hemoglobin 13.7 g/dL (12.2-16.2) Hematocrit 41.0 % (36.0-46.0) Mean Corpuscular Volume 83.4 fL (80.0-100.0) Mean Corpuscular Hemoglobin 27.9 pg (28.0-32.0) Mean Corpuscular Hemoglobin Concent 33.5 g/dL (32.0-36.0) Red Cell Distribution Width 14.5 % (11.8-14.3) Platelet Count 402 10^3/uL (140-450) Mean Platelet Volume 7.2 fL (6.9-10.8) Neutrophils (%) (Auto) 65.4 % (37.0-80.0) Lymphocytes (%) (Auto) 24.5 % (10.0-50.0) Monocytes (%) (Auto) 7.0 % (0.0-12.0) Eosinophils (%) (Auto) 2.5 % (0.0-7.0) Basophils (%) (Auto) 0.6 % (0.0-2.0) Neutrophils # (Auto) 5.4 10 ^3/uL (1.6-8.6) Lymphocytes # (Auto) 2.0 10 ^3/uL (0.4-5.4) Monocytes # (Auto) 0.6 10 ^3/uL (0-1.3) Eosinophils # (Auto) 0.2 10 ^3/uL (0-0.8) Basophils # (Auto) 0 10 ^3/uL (0-0.2) Nucleated Red Blood Cells 0.0 % Sodium Level 141 mmol/L (136-145) Potassium Level 3.6 mmol/L (3.5-5.1) Chloride Level 103 mmol/L (98-107) Carbon Dioxide Level 26 mmol/L (20-31) Anion Gap 12 (5-15) Blood Urea Nitrogen 9 mg/dL (9-23) Creatinine 0.55 mg/dL (0.550-1.02) Glomerular Filtration Rate Calc 95 mL/min (>90) BUN/Creatinine Ratio 16.4 (10.0-20.0) Serum Glucose 101 mg/dL (74-106) Calcium Level 9.4 mg/dL (8.7-10.4) Total Bilirubin 0.3 mg/dL (0.2-1.0) Aspartate Amino Transferase (AST) 17 U/L (13-40) Alanine Aminotransferase (ALT) 10 U/L (7-40) Alkaline Phosphatase 92 U/L (46-116) Total Protein 7.2 g/dL (5.7-8.2) Albumin 4.0 g/dL (3.2-4.8) Lactic Acid Level 0.9 mmol/L (0.4-2.0) Phosphorus Level 3.4 mg/dL (2.4-5.1) Magnesium Level 2.0 mg/dL (1.6-2.6) Troponin I High Sensitivity < 3 ng/L (</=34) Triglycerides Level 100 mg/dL (< 150) Cholesterol Level 139 mg/dL (< 200) LDL Cholesterol 75 mg/dL (< 100) HDL Cholesterol 56 mg/dL (40-59) Vitamin B12 Level 295 pg/mL (211-911) Prothrombin Time 9.8 sec (9.3-11.8) Prothrombin Time INR 0.92 (0.9-1.15) Activated Partial Thromboplast Time 28.4 SEC (24.5-34.5) D-Dimer, Quantitative 0.92 mg/L FEU (0.0-0.49) Hemoglobin A1c 5.3 % A1C (<5.7) B-Type Natriuretic Peptide 17.93 pg/mL (0-100) Vitamin D 25-Hydroxy 24.1 ng/mL (30.0-100) Thyroid Stimulating Hormone (TSH) 1.75 uIU/mL (0.55-4.78) Other Laboratory Tests 08/21/25 05:55 Brief Hx & Hospital Course: 75-year-old female with a known history of hypertension presented to the hospital with the upper back pain chest pressure and burning urination found to have urinary tract infection. Patient was ruled out for acute VT. Patient has had elevated D-dimer ruled out for pulmonary embolism by negative CT angio chest. Patient's found to have UTI which was treated with the IV antibiotics. Patient's chest pain probably is costochondritis as echo is unremarkable without any pericardial effusion. Patient is being discharged under stable condition on p.o. antibiotics. Daughter at bedside who agreed to the current plan of care. Medication as prescribed and reconciled. Condition at Discharge: Stable Final Diagnosis/Problems List 75-year-old female with a known history of hypertension presented to the hospital with the upper back pain chest pressure and burning urination found to have 1. Chest pain rule out acute VT 2. Elevated D-dimer ruled out acute PE 3. Urinary tract infection 4. History of recurrent UTI 5. Chronic asthma Discharge Disposition: Home SNF Discharge Will this Physician continue t: No Discharge Instruct/Medications Diet: Cardiac 2g Na,low cholest Activity: No Restrictions, As Tolerated Follow Up/Referral: Please follow up with the PCP in 1-2 weeks. Medications: Resume home medications, new prescription as prescribed. Continued Medications: Indomethacin (Indomethacin) 25 Mg Cap 25 MG PO BIDWM for 30 Days Olanzapine (Olanzapine) 5 Mg Tab 1 TAB PO QPM for 10 Days, #10 TAB 2 Refills Discontinued Medications: Cephalexin (Cephalexin) 750 Mg Cap 500 MG OR QID, CAP Scheduled Cefdinir (Cefdinir), 1 CAP PO BID Cephalexin (Cephalexin), 500 MG OR QID, (Reported) Indomethacin (Indomethacin), 25 MG PO BIDWM, (Reported) Olanzapine (Olanzapine), 1 TAB PO QPM Discharge Statement: "Patient was advised to return to the ER or call 911 if any headaches, dizziness, shortness of breath, chest pain, abdominal pain, bleeding, fevers, or worsening of medical condition. Patient was counseled about treatment plan, medications, possible side effects, patientverbalized understanding. All questions were answered to the best of my ability. This discharge took greater then 30 minutes in planning, reviewing documentation, counseling the patient, and discussing with other team members." ASSESSMENT ASSESSMENT Assessment 75-year-old female with a known history of hypertension presented to the hospital with the upper back pain chest pressure and burning urination found to have 1. Chest pain rule out acute [place] 2. Elevated D-dimer ruled out acute PE 3. Urinary tract infection 4. History of recurrent UTI 5. Chronic asthma Date of Service: Aug 23, 2025 Billing Provider: BRAD CROUCH MD Common Visit Codes: [id number] DISCH DAY >30min BRAD CROUCH MD Aug 23, 2025 16:59
== END 2025-08-23 17:40 | disposition home or self-care (01) | DRG 206 ==
LOC: ER 19:12 → EDUNIT# 22:36 → OVERFLOW 22:36 → EAST 08-21 20:09
PROVIDERS: ADMIT Internal Medicine; ATTEND Internal Medicine
DX: M94.0 Chondrocostal junction syndrome [Tietze] (principal); N39.0 Urinary tract infection, site not specified; N28.1 Cyst of kidney, acquired; J45.909 Unspecified asthma, uncomplicated; M81.0 Age-related osteoporosis without current pathological fracture; E04.2 Nontoxic multinodular goiter; I10 Essential (primary) hypertension; Z79.899 Other long term (current) drug therapy; Z87.440 Personal history of urinary (tract) infections; Z90.49 Acquired absence of other specified parts of digestive tract; Z83.3 Family history of diabetes mellitus
CPT/HCPCS: 36415; 71045; 71275; 76536; 76775; 80053; 80061; 80307; 81001; 82088; 82306; 82533; 82607; 83036; 83605; 83735; 83835; 83880; 84100; 84244; 84443; 84484; 85025; 85379; 85610; 85730; 87040; 87086; 87088; 87186; 93005; 93306; 93970; 94640; 96372; 96374; G0378